=== PATIENT | female | born 1980 ===

== ENCOUNTER 2021-10-03 06:34 | Day surgery (SDC) | payer OTHER ==
[~2021-10-03] VITALS: Ht 167.6 cm; Wt 81.6 kg
[~2021-10-03 06:34] MED LIST: COZAAR25 MG PO
== END 2021-10-03 13:15 | disposition home or self-care (01) ==
LOC: CIR.AMB 06:34
PROVIDERS: ATTEND Obstetrics & Gynecology Gynecologic Oncology
DX: N83.201 Unspecified ovarian cyst, right side (principal); N83.11 Corpus luteum cyst of right ovary; R59.0 Localized enlarged lymph nodes; Z20.822 Contact with and (suspected) exposure to COVID-19; N13.2 Hydronephrosis with renal and ureteral calculous obstruction; I10 Essential (primary) hypertension; J45.909 Unspecified asthma, uncomplicated; Z71.6 Tobacco abuse counseling; F17.210 Nicotine dependence, cigarettes, uncomplicated; E66.9 Obesity, unspecified; N73.6 Female pelvic peritoneal adhesions (postinfective)